=== PATIENT | female | born 1985 | race Caucasian/White ===

== ENCOUNTER 2019-08-24 05:20 | Inpatient (IN) | payer MEDICAID ==
[~2019-08-24] VITALS: Ht 175.3 cm; Wt 140.6 kg
[2019-08-24] MEDS ORDERED: TERBUTALINE SULFATE 1 MG/ML VIAL SUBCUT ONE (05:30)
[2019-08-24] MEDS ORDERED: OXYTOCIN/0.9 % SODIUM CHLORIDE 1,000 ML IV SCH ×2 (05:30→11:51)
[2019-08-24] MEDS ORDERED: NALBUPHINE HCL 10 MG/ML AMP IVP PRN (05:30)
[2019-08-24] MEDS ORDERED: LR 1,000 ML IV SCH (05:30)
[2019-08-24 06:01] VITALS: BP_SYST 132
[2019-08-24 06:15] LABS: BASOPHILS % (AUTO) 0.5 % (0.0-2.0); EOSINOPHILS % (AUTO) 0.2 % (0.0-4.0); HEMATOCRIT 37.7 % (36-48); HEMOGLOBIN 12.8 g/dL (12.0-16.0); LYMPHOCYTES # (AUTO) 2.3 K/uL (1.0-5.5); LYMPHOCYTES % (AUTO) 31.2 % (20.5-51.5); MEAN CORPUSCULAR HEMOGLOBIN 28 pg (27-31); MEAN CORPUSCULAR HGB CONC 34 % (32-36); MEAN CORPUSCULAR VOLUME 83 fL (79.0-98.0); MONOCYTES # (AUTO) 0.5 K/uL (0.0-1.0); MONOCYTES % (AUTO) 7.1 % (1.7-9.3); NEUTROPHILS # (AUTO) 4.6 K/uL (1.8-7.7); PLATELET COUNT (AUTO) 193 K/uL (130-430); RED BLOOD CELL COUNT(AUTO) 4.54 MIL/uL (4.2-6.2); RED CELL DISTRIBUTION WIDTH 14.8 % (9.0-15.0); WHITE BLOOD COUNT (AUTO) 7.5 K/uL (4.8-10.8)
[2019-08-24] MEDS ORDERED: FENT2mCg/mL-ROPIVA0.2%/NS EPID 150 ML EP SCH (08:50)
[2019-08-24] MEDS ORDERED: fentaNYL CITRATE/PF 100 MCG/2 ML AMP ONE (08:58)
[2019-08-24] MEDS ORDERED: ROPIVACAINE HCL/PF 0.2% 200 ML ONE (08:58)
[2019-08-24] MEDS ORDERED: HYDROCORTISONE 0.5%, 28.35 GM TOPICAL CREAM TP PRN (12:00)
[2019-08-24] MEDS ORDERED: OXYCODONE/ACETAMINOPHEN 5-325 TABLET PO PRN ×2 (12:00)
[2019-08-24] MEDS ORDERED: LANOLIN 7 GM OINT. TP PRN (12:00)
[2019-08-24] MEDS ORDERED: DOCUSATE SODIUM 100 MG CAPSULE PO PRN (12:00)
[2019-08-24] MEDS ORDERED: DERMOPLAST SPRAY TP PRN (12:00)
[2019-08-24] MEDS ORDERED: WITCH HAZEL LEAF 1 MED.PAD MED.PAD TP PRN (12:00)
[2019-08-24] MEDS ORDERED: MINERAL OIL 30 ML UDC PO ONE (14:15)
[2019-08-24] MEDS: IBUPROFEN 800 MG TABLET PO PRN (18:00)
[2019-08-24] MEDS ORDERED: METHYLERGONOVINE MALEATE 0.2 MG TABLET PO PRN (20:45)
[2019-08-24] MEDS ORDERED: OXYTOCIN 20 UNIT in LR 1,000 ML IV SCH (20:45)
[2019-08-24] MEDS ORDERED: METHYLERGONOVINE MALEATE 0.2 MG/ML AMP IM ONE (20:45)
[2019-08-24] MEDS ORDERED: METHYLERGONOVINE MALEATE 0.2 MG/ML AMP ONE (21:00)
[2019-08-24] MEDS ORDERED: OXYTOCIN 10 UNIT/ML VIAL ONE (21:11)
[2019-08-25] MEDS: IBUPROFEN 800 MG TABLET PO PRN ×3 (02:01→17:36)
[2019-08-25 06:48] LABS: BASOPHILS % (AUTO) 0.2 % (0.0-2.0); EOSINOPHILS % (AUTO) 0.2 % (0.0-4.0); HEMATOCRIT 30.3 % (36-48); HEMOGLOBIN 10.3 g/dL (12.0-16.0); LYMPHOCYTES # (AUTO) 2.7 K/uL (1.0-5.5); LYMPHOCYTES % (AUTO) 26.9 % (20.5-51.5); MEAN CORPUSCULAR HEMOGLOBIN 29 pg (27-31); MEAN CORPUSCULAR HGB CONC 34 % (32-36); MEAN CORPUSCULAR VOLUME 85 fL (79.0-98.0); MONOCYTES # (AUTO) 0.8 K/uL (0.0-1.0); MONOCYTES % (AUTO) 8.3 % (1.7-9.3); NEUTROPHILS # (AUTO) 6.5 K/uL (1.8-7.7); NEUTROPHILS % (AUTO) 64.4 % (40.0-70.0); PLATELET COUNT (AUTO) 158 K/uL (130-430); RED BLOOD CELL COUNT(AUTO) 3.58 MIL/uL (4.2-6.2); RED CELL DISTRIBUTION WIDTH 14.9 % (9.0-15.0)
[2019-08-25 07:14] LABS: WHITE BLOOD COUNT (AUTO) 10.1 K/uL (4.8-10.8)
[2019-08-26] MEDS: IBUPROFEN 800 MG TABLET PO PRN ×2 (06:38)
[2019-08-26] MEDS ORDERED: DOCU-144 PO (10:19)
[2019-08-26] MEDS ORDERED: IBUP-1970 PO (10:19)
== END 2019-08-26 11:20 | disposition home or self-care (01) | DRG 560 ==
LOC: SPU 05:20
PROVIDERS: ADMIT Specialist; ATTEND Specialist
PROC: 10E0XZZ Delivery of Products of Conception, External Approach (ICD-10-PCS; principal; 2019-08-24)
PROC: 3E033VJ Introduction of Other Hormone into Peripheral Vein, Percutaneous Approach (ICD-10-PCS; 2019-08-24)
PROC: 0HQ9XZZ Repair Perineum Skin, External Approach (ICD-10-PCS; 2019-08-24)
PROC: 3E0R3BZ Introduction of Anesthetic Agent into Spinal Canal, Percutaneous Approach (ICD-10-PCS; 2019-08-24)
PROC: 00HU33Z Insertion of Infusion Device into Spinal Canal, Percutaneous Approach (ICD-10-PCS; 2019-08-24)
DX: O14.04 Mild to moderate pre-eclampsia, complicating childbirth (principal); E66.01 Morbid (severe) obesity due to excess calories; O70.0 First degree perineal laceration during delivery; O99.214 Obesity complicating childbirth; Z37.0 Single live birth; Z3A.39 39 weeks gestation of pregnancy
CPT/HCPCS: 36415; 81002-TC; 85025; 86592; 86886; 86900; 86901; J2210; J2300; J2590; J3010; J7120